=== PATIENT | female | born 1985 | race Caucasian/White ===

== ENCOUNTER 2017-10-21 21:21 | Emergency (ER) | payer MEDICAID ==
[2017-10-21] MEDS ORDERED: ONDANSETRON ODT 4 MG TAB PO ONE (22:45)
--- NOTE | 2017-10-21 22:51 | PD ---
HPI Chief Complaint sore throat, nausea Travel History International Travel<30 Days: No Contact w/Intl Traveler<30Days: No Known Affected Area: No History of Present Illness HPI 32-year-old 012, IUP at 17.0 care complicated by history of prior delivery for breech The patient presents as noted on visit or to the area with sharp stabbing needlelike pains on the right lower quadrant greater than on the left lower quadrant. She reports these started yesterday there's stabbing in nature and they resolve with lying down or certain position changes. She also reports a sore throat with difficulty swallowing and swollen lymph nodes under her in her neck. In addition she reports nausea since yesterday. She reports diarrhea 3- 4 times today, she has no ill contacts, there is no vomiting. She reports she cannot produce a diarrhea specimen now for testing. She reports she had difficulty sleeping last night. She reports that she has decreased appetite today. She believes that she had fever and chills at home but did not check her temperature. She did attempt to take Tylenol yesterday but it did not help her sore throat. She she denies any leaking of fluid or vaginal bleeding. She denies any abdominal cramping. She reports occasional flutters of movement. Other than the Tylenol as mentioned, she denies any aggravating or alleviating factors to the above-mentioned symptoms. Weeks Gestation: 17 Para: 2 : 4 History Past Medical History Medical History: Denies Significant Hx Obstetric History Obstetric History 012 1 Full-term delivery 1 Desires to with this Laparoscopy for ectopic 1 Past Surgical History Narrative Surgical delivery Laparoscopic salpingectomy Family History Narrative Family History Noncontributory Social History Alcohol Use: No Tobacco Use: No Substance Abuse: No Allergies-Medications (Allergen,Severity, Reaction): Coded Allergies: doxycycline (Verified Allergy, Mild, 10/21/17) Review of Systems Except as stated in HPI: all other systems reviewed are Neg Physical Exam Narrative GENERAL: Well-nourished, well-developed patient. SKIN: Warm and dry. HEAD: Normocephalic and atraumatic. EYES: No scleral icterus. No injection or drainage. ENT: No nasal drainage noted. Mucous membranes pink. Airway patent. Throat with mildly increased erythema. NECK: Supple, trachea midline. No JVD. Some lymphadenopathy noted. CARDIOVASCULAR: Regular rate and rhythm without murmurs, gallops, or rubs. RESPIRATORY: Breath sounds equal bilaterally. No accessory muscle use. BREASTS: Deferred ABDOMEN/GI: Abdomen soft, non-tender, bowel sounds present, no rebound, no guarding Gravid GENITOURINARY: External Genitalia: intact and normal in appearance, normal BUS, no cervical or vaginal masses, physiologic discharge, grossly normal rugae, SVE closed/thick /high/posterior FHT's: 130s, [place] flat EXTREMITIES: No cyanosis or edema. BACK: Nontender without obvious deformity. NEUROLOGICAL: Awake and alert. Motor and sensory grossly within normal limits. Grossly normal Five out of 5 muscle strength in all muscle groups. Normal speech. Grossly normal ROM, gait PSYCHIATRIC: grossly normal memory, affect Data Data Orders Orders Ondansetron Odt (Zofran Odt) (10/21/17 22:45) MDM Plan Assessment/plan: 1. IUP at 17.0 2. Nausea/diarrhea: Patient was unable to produce diarrhea specimen here, she declines laboratory evaluation and IV fluids. She is able to tolerate by mouth intake. She was given Zofran 4 mg ODT prior to discharge and a prescription for Zofran 4 mg ODT #10 she was given strict dietary precautions with the BRAT diet. She was given strict precautions to return if her symptoms have not improved within the next day, if her symptoms have worsened, and/or she starts experiencing emesis or has continued diarrhea. Encourage good hydration. 3. Possible pharyngitis: Patient has some mild lymphadenopathy and difficulty swallowing, mild erythema, reports fevers/chills at home but afebrile here. Patient is traveling out of town. Will Rx penicillin G BID x10d; as per literature, BID dosing appears to be as effective as TID dosing. Penicillin G has a limited spectrum and no current resistance for bacterial pharyngitis per literature. Strict fever/pain precautions, tylenol for comfort. 4. Stabbing abdominal pain: consistent with round ligament stretching, comfort measures, education given 5. assessment: FHT appropriate for gestational age 6. F/U with primary Ob in 2-3 days and return as needed and in 1 day if symptoms worsen or don't improve 7. UA drip with blood noted, US pending. Diagnosis Diagnosis: Primary Impression: 17 weeks gestation of Additional Impressions: Pharyngitis Round ligament pain Disposition: 01 DISCHARGE HOME Condition: Good Patient Instructions: General Instructions, Labor (ED), Movement (ED), Abdominal Pain in (ED) Additional Instructions: DRINK PLENTY OF WATER DURING THE DAY, RETURN IF LEAKING FLUID, VAGINAL BLEEDING , STRONG CONTRACTIONS OR DECREASE IN BABY MOVING. FOLLOW UP WITH YOUR OB DR IN AM AND KEEP ALL UPCOMING OB APPTS. Departure Forms: Tests/Procedures Pamella Gerber MD Oct 21, 2017 22:51
[2017-10-22 00:21] LABS: BACTERIA, URINE RARE /hpf; BILIRUBIN, URINE NEG (NEG); BLOOD, URINE SMALL (NEG); GLUCOSE,URINE NEG (NEG); KETONE, URINE TRACE mg/dL (NEG); MUCUS URINE FEW /lpf (OCC); NITRITE,URINE NEG (NEG); SQUAMOUS EPITHELIAL CELL URINE 14 /hpf (0-5); URINE COLOR YELLOW (YELLW/STRAW); URINE LEUKOCYTE ESTERASE TRACE (NEG)
== END 2017-10-21 23:02 | disposition home or self-care (01) ==
LOC: HOBED 21:21
DX: O99.512 Diseases of the respiratory system complicating pregnancy, second trimester (principal); J02.9 Acute pharyngitis, unspecified; O26.892 Other specified pregnancy related conditions, second trimester; R10.2 Pelvic and perineal pain; R11.0 Nausea; R19.7 Diarrhea, unspecified; Z3A.17 17 weeks gestation of pregnancy
CPT/HCPCS: 81001; 99283